=== PATIENT | female | born 1990 | race Caucasian/White ===

== ENCOUNTER 2018-02-11 16:59 | Observation (INO) ==
[2018-02-11 18:18] LABS: Bilirubin,Urine Negative (Negative); Blood,Urine Negative (Negative); Clarity,Urine Cloudy (Clear); Color,Urine Yellow (Yellow); Glucose,Urine (UA) Normal (Normal); Ketones,Urine Negative (Negative); Leukocyte Esterase,Urine Negative (Negative); Nitrite,Urine Negative (Negative); PH,Urine 6.5 pH Units (5.0-8.0); Protein,Urine 30 mg/dL (Neg-Trace); Specific Gravity,Urine 1.026 (1.010-1.025); Urobilinogen,Urine Normal (Normal)
[2018-02-11 18:19] LABS: Bacteria,Urine Many per hpf (None-Few); Hyaline Casts,Urine None Seen per lpf (None-Few); Squamous Epithelial Cell,Urine Many per lpf (None-Few); WBC,Urine 30-50 per hpf (0-3)
[2018-02-11 18:29] LABS: Alanine Aminotransferase 12 Units/L (7-52); Aspartate Amino Transferase 18 Units/L (13-39); BUN/Creatinine Ratio 13 (6-26); Blood Urea Nitrogen 10 mg/dL (6-20); Lactate Dehydrogenase 201 Units/L (140-271); Uric Acid 5.9 mg/dL (2.3-7.6); eGFR For Non-African Americans > 60 (> 60)
[2018-02-11 18:34] LABS: Calcium Oxalate Crystals,Urine Present
[2018-02-11 18:36] LABS: Basophils % 0.4 %; Eosinophils # 0.1 K/mcL (0.0-0.6); Eosinophils % 1.3 %; Hematocrit 35.2 % (35.3-44.9); Hemoglobin 11.5 g/dL (11.5-15.4); Immature Granulocytes % 0.5 % (0-4); Mean Corpuscular HGB Conc 32.7 g/dL (31.6-35.5); Mean Corpuscular Volume 79.6 fL (83.0-100.0); Mean Platelet Volume 11.4 fL (9.4-12.4); Monocytes # 0.7 K/mcL (0.0-1.3); Neutrophils # 5.5 K/mcL (1.6-8.9); Platelet Count 270 K/mcL (140-400); Red Blood Count 4.42 M/mcL (3.82-4.97); Red Cell Distribution Width 14.6 % (11.5-14.5); Segmented Neutrophils % 65.8 %
[2018-02-11 18:40] LABS: Amphetamine Screen,Urine Negative ng/mL (Cutoff=1000); Barbiturate Screen,Urine Negative ng/mL (Cutoff=200); Benzodiazepines Screen,Urine Negative ng/mL (Cutoff=200); Cannabinoid Screen,Urine Negative ng/mL (Cutoff = 50); Cocaine Screen,Urine Negative ng/mL (Cutoff= 300); Opiate Screen,Urine Negative ng/mL (Cutoff=300); Phencyclidine Screen,Urine Negative ng/mL (Cutoff=25)
[2018-02-11 18:43] LABS: Protein/Creatinine Ratio,Urine 0.18 mg/mg (0.00-0.20)
[2018-02-11 18:55] LABS: Hypochromasia Present (Not Present); Microcytosis Present (Not Present); Platelet Clumps Few (Not Present)
--- NOTE | 2018-02-13 13:55 | Event Note ---
Date of Encounter: 02/11/18 Time of Encounter: 18:55 Patient presented to labor and delivery complaining of headache and elevated blood pressures. Patient seen by nursing. [facility] labs were ordered. All results within normal limits. Patient feeling better. All labs called to me within normal limits and blood pressures normal. Patient desiring to go home. I gave verbal order for patient to go home. I did not see this patient personally
== END 2018-02-11 19:05 | disposition home or self-care (01) ==
LOC: 1NENULAB
PROVIDERS: ADMIT Obstetrics & Gynecology; ATTEND Obstetrics & Gynecology

== ENCOUNTER 2018-03-15 16:58 | Inpatient (IN) ==
[2018-03-15 14:54] LABS: Basophils % 0.2 %; Eosinophils % 0.4 %; Hematocrit 33.8 % (35.3-44.9); Hemoglobin 11.2 g/dL (11.5-15.4); Immature Granulocytes % 0.5 % (0-4); Lymphocytes # 1.5 K/mcL (0.6-4.6); Lymphocytes % 17.5 %; Mean Corpuscular HGB Conc 33.1 g/dL (31.6-35.5); Mean Corpuscular Hemoglobin 25.6 pg (28.0-33.3); Mean Corpuscular Volume 77.3 fL (83.0-100.0); Mean Platelet Volume 11.2 fL (9.4-12.4); Monocytes # 0.4 K/mcL (0.0-1.3); Monocytes % 5.2 %; Neutrophils # 6.4 K/mcL (1.6-8.9); Nucleated Red Blood Cells 0.2 /100 WBC (0); Platelet Count 276 K/mcL (140-400); Red Blood Count 4.37 M/mcL (3.82-4.97); Red Cell Distribution Width 15.7 % (11.5-14.5); Segmented Neutrophils % 76.2 %
[2018-03-15 15:19] LABS: Alanine Aminotransferase 10 Units/L (7-52); Aspartate Amino Transferase 14 Units/L (13-39); BUN/Creatinine Ratio 10 (6-26); Blood Urea Nitrogen 8 mg/dL (6-20); Lactate Dehydrogenase 155 Units/L (140-271); Uric Acid 7.3 mg/dL (2.3-7.6); eGFR For Non-African Americans > 60 (> 60)
[2018-03-15 15:30] LABS: Amphetamine Screen,Urine Negative ng/mL (Cutoff=1000); Barbiturate Screen,Urine Negative ng/mL (Cutoff=200); Benzodiazepines Screen,Urine Negative ng/mL (Cutoff=200); Cannabinoid Screen,Urine Negative ng/mL (Cutoff = 50); Cocaine Screen,Urine Negative ng/mL (Cutoff= 300); Opiate Screen,Urine Negative ng/mL (Cutoff=300); Phencyclidine Screen,Urine Negative ng/mL (Cutoff=25)
[2018-03-15 16:44] LABS: Protein/Creatinine Ratio,Urine 0.21 mg/mg (0.00-0.20)
[~2018-03-15 16:58] MED LIST: *HR* Nalbuphine 10 MG/ML AMPUL IVP PRN; Famotidine 20 MG/2 ML VIAL IVP PRN; Naloxone 0.4 MG/ML INJ IVP PRN; Ondansetron 4 MG/2 ML VIAL IVP PRN
[2018-03-15] MEDS ORDERED: Ringers Solution, Lactated 1,000 ML IVC SCH (17:00)
[2018-03-15] MEDS ORDERED: Acetaminophen 325 MG TABLET PO PRN (17:00)
--- NOTE | 2018-03-15 17:12 | OB/GYN History & Physical ---
Date of Encounter: 03/15/18 Time of Encounter: 17:04 Assessment and Plan (1) 40 weeks gestation of Current visit: Yes Status: Acute Patient admitted for delivery (2) Elevated blood pressure affecting in third trimester, antepartum Current visit: Yes Status: Acute Normal PIH labs] +proteinuria Discussed Patient assessment, labs and BP with Dr. Small who recommends delivery at this time. History of Present Illness Chief complaint: Elevated BP in HPI: Ms. Foreman is a 27 year old female at 40w0d presents to labor and delivery for PIH evaluation following and elevated BP in Dr. Santos's office today which was 130/98. Patient has proteinuria and edema bilateral extremities. Patient denies CARRILLO, Visual disturbances or epigastric pain. Patient denies any complications with current . Patient reports good movement. Denies contractions, VB or LOF. Blood type: O Positive Hep B: nonreactive Rubella: Immune GBS: Negative Past Med Surg Social Fam HX - Past Medical History Source: patient Medical history: GERD Additional medical history: Scoliosis Psychiatric history: anxiety - Past Surgical History Surgical History: other Additional surgical history: [place] teeth - Social History Smoking Status: Former smoker Smokeless Tobacco Status: No Alcohol use: none Drug use: none - Family History Mother Living Status: Still Living Hx Family Cardiac Disorders: Yes (HTN, Strokes) Hx Family Respiratory Disorders: No Hx Family Cancer: No Hx Family GI Disorders: No Hx Family Genitourinary Disorders: No Hx Family Endocrine Disorder: Yes (DM) Hx Family Musculoskeletal Disorders: No Hx Family Neuromuscular Disorders: No Hx Family Neurologic Disorders: No Hx Family HEENT Disorders: No Hx Family Autoimmune Disorders: No Hx Family Reproductive Disorders: No Hx Family Psychosocial Disorders: No Hx Family Medical Disorders: No Obstetrical History - Pregnancies : 1 Para: 0 Term: 0 : 0 Ab's: 0 Livin Medications and Allergies Vit/Iron Fumarate/FA [ Tablet] 1 tab PO DAILY 02/11/18 [History ] 3 Allergy/AdvReac Type Severity Reaction Status Date / Time No Known Allergies Allergy Verified 02/11/18 17:15 Review of System OB - Constitutional Constitutional ROS IM: no chills, no fever(s), no headache(s) - Cardiovascular Cardiovascular: pedal edema, no chest pain, no lightheadedness, no palpitations , no syncope - Respiratory Respiratory: no cough - Gastrointestinal Gastrointestinal: no abdominal pain, no constipation, no diarrhea, no heartburn , no nausea, no vomiting - Genitourinary Genitourinary: no abnormal vaginal bleeding, no dysuria, no flank pain, no urinary frequency, no vaginal discharge, no vaginal odor Exam - Constitutional Constitutional: well developed, well nourished, no acute distress, obese - HEENT HEENT: Normocephaly, Mucus Membranes Moist - Neck Neck exam: full ROM, supple - Lungs Respiratory exam: CTAB - Cardiovascular Cardiovascular exam: RRR, +S1, +S2 - Abdomen Abdomen: Present: bowel sounds normal, gravid, non tender - Extremities Extremities exam: full ROM, pedal edema (2+ bilateral feet) Deep Tendon Reflex Grade: 2+ Normal (no clonus) - Uterus Uterus exam: Present: normal size, normal contour - Comments Comments: FHR 135 bpm moderate variability +15x15 accels no decels noted. Cat. 1 tracing. Occasional contraction noted. Results Result Diagrams: 03/15/18 14:30 03/15/18 14:30 Abnormal lab results Hgb 11.2 g/dL (11.5-15.4) L 03/15/18 14:30 Hct 33.8 % (35.3-44.9) L 03/15/18 14:30 MCV 77.3 fL (83.0-100.0) L 03/15/18 14:30 MCH 25.6 pg (28.0-33.3) L 03/15/18 14:30 RDW 15.7 % (11.5-14.5) H 03/15/18 14:30 Nucleated RBCs/100 WBC 0.2 /100 WBC (0) H 03/15/18 14:30 Protein/Creatinin Ratio 0.21 mg/mg (0.00-0.20) H 03/15/18 14:30 Urine Total Protein 83 mg/dL (1-14) H 03/15/18 14:30 All other labs normal. - VTE Reasons for not Prescribing Prophylaxis: Treatment not Indicated - Low risk for VTE
[2018-03-15] MEDS ORDERED: EPHEDrine 50 MG/ML VIAL IVP PRN (20:01)
--- NOTE | 2018-03-15 20:05 | Anesthesia Evaluation PreOp ---
Date of Encounter: 03/15/18 Time of Encounter: 19:52 - Past History Planned Operation: vaginal del, 40wk PIH induction G1 Cardiac History: HTN (bilateral edema, protein in urine.) Pulmonary History: Denies Any Significant HX FIRE PROTECTION SPECIALIST History: Other (scoliosis - chronic back pain no radiculopathy reported.) Other Medical History: GERD, Other (anxiety, [place] - bmi = 39) Anesthesia History: No Prior Anesthetic Complications, Past Anesthesia Alcohol Use: none Drug use: none Medications and Allergies Vit/Iron Fumarate/FA [ Tablet] 1 tab PO DAILY 02/11/18 [History ] 3 Allergy/AdvReac Type Severity Reaction Status Date / Time No Known Allergies Allergy Verified 02/11/18 17:15 Anesthesia Results - Labs 03/15/18 14:30 03/15/18 14:30 Anesthesia Exam - HEENT Pupil (Motor): Pupils equal Mallampati: II Teeth: Normal (tongue ring...told it must come out prior to epidural.) Oral Opening: Greater than 3 - FIRE PROTECTION SPECIALIST LOC: Oriented FIRE PROTECTION SPECIALIST Motor: Normal RUE, Normal LUE, Normal RLE, Normal LLE, Normal Face FIRE PROTECTION SPECIALIST Sensory: Normal: RUE, LUE, RLE, LLE, Face - Cardiac Rhythm: Regular Murmur: None - Pulmonary Breath Sounds: bilateral Clear Respiratory Effort: Symmetrical Anesthesia Assess/Plan ASA Score: 3 Modified George Scale for Level of Consciousness: Cooperative, oriented, and tranquil Anesthetic Plan: General, Regional Monitoring Plan: Standard Monitors Recovery Plan: PACU
[2018-03-15] MEDS ORDERED: Epidural Premix (fent/bupiv) 110 ML EP SCH (20:15)
[2018-03-16] MEDS ORDERED: Epidural Premix (fent/bupiv) 110 ML EP ONE (05:48)
[2018-03-16] MEDS ORDERED: Lidocaine -MPF 2% 5 ML VIAL ONE (05:50)
--- NOTE | 2018-03-16 06:25 | Anesthesia Procedures ---
Date of Encounter: 03/16/18 Time of Encounter: 06:04 Procedures: Anesthesia - Epidural/Spinal Patient ID/Chart reviewed: Yes Patient examined: Yes OB Eval: Gestational age: term OB Eval: : 1 OB Eval: Contractions: Non-stressed pattern Consent Obtained: Yes Supplemental Oxygen: None/Room Air Site Prep: Aseptic Technique, Sterile prep and drape, 0.5% Chlorhexidine/Alcohol Patient position: upright Local Anesthetic: Lidocaine 1% Amount of Local Anesthetic used: 2 Touhy Needle Gauge: 18 Touhy Needle Depth (cm): 8 Catheter Depth at Skin (cm): 13 Test Dose (1.5% Lido + Epi): Volume given (mls): 3 Test Dose Result: Negative Loading Dose: Other: 10ml from solution Loading Dose Administered: Thru Catheter Infusion Med: 0.125% Bupivacaine w/ 2 mcg/ml Fentanyl Infusion Rate (mls/hr): [address]: Tegaderm, Tape Interspace Used: L3-L4 Loss of Resistance (VITO): Yes (saline) Blood: No CSF: No Paresthesia: No Procedure: vss though out, fhr stable per RN's
[2018-03-16] MEDS ORDERED: Oxytocin 20 units/ LR 1000 mL 20 UNIT/1,000 ML BAG IVC SCH ×2 (07:00→15:47)
--- NOTE | 2018-03-16 09:13 | OB Labor Progress Note ---
Date of Encounter: 03/16/18 Time of Encounter: 09:09 Labor Progress Note - Subjective Subjective: Pt reports pain 6/10 with contractions that just recently started to return since epidural was placed. - Heart Tones Heart Tones: Category I - Arbuckle Arbuckle: irregular - Plan Plan: Plan for pitocin augmentation. Epidural bolus as needed for pain control. AROM when contractions are regular. Anticipate .
[2018-03-16] MEDS ORDERED: *HR* FentaNYL (PF) 100 MCG/2 ML VIAL ONE (09:39)
--- NOTE | 2018-03-16 09:45 | Anesthesia Progress Note ---
Date of Encounter: 03/16/18 Time of Encounter: 09:44 Anesthesia Note - Note Note: 03/16/18 09:44 bolus fentanyl 100 mcg, ropivicaine 0.2% 5cc for break through pain
--- NOTE | 2018-03-16 15:12 | OB/GYN Procedure Note ---
Delivery - Delivery Date: 03/16/18 Provider: Manjeet Still Intrapartum events: none Delivery induction: cervidil Delivery augmentation: pitocin Delivery monitor: internal FHT, internal uterine Anesthesia: epidural Quantitated Blood Loss: 100 - (s) Infant A Delivery Date: 03/16/18 Infant Delivery Time: 14:12 Presentation: vertex Position: OA Route of delivery: vacuum extraction Gender: Female Viability: Viable Weight Gram: 3.07 kg at 1 minute: 9 at 5 mins: 9 Shoulder Dystocia: not encountered Specimens collected: cord blood Placenta: spontaneous Cord: 3 umbilical vessels, nuchal cut - Repair Laceration Description: Perineal - 2nd Degree - Complications Delivery complications: none - Disposition Mom disposition: stable in LDR disposition: stable in LDR - Comments Comments: Patient's 27-year-old female 40 weeks 1 day gestation induced for preeclampsia uterus complete dilatation was asked to come see patient for maternal exhaustion +2 station. Verbal consent was obtained for vacuum extraction. Bladder was drained of clear urine. Kiwi vacuum was applied to the head and vacuum was applied to the pressure 550 mmHg with good movement of the . The Tissue was attempted 2 more times with immediate pop off. Infant was delivered from direct OA presentation was found was 6 lbs. 12 oz. Apgars of 9 at 1 minute and 9 at 5 minutes. We have spontaneously deliver with three- vessel cord. It was a second-degree laceration. With 0 Vicryl under general anesthesia. Estimated blood loss was 100 mL. Mother and recovered in the labor and delivery room
[2018-03-16] MEDS ORDERED: Acetaminophen 325 MG TABLET PO PRN (15:47)
[2018-03-16] MEDS ORDERED: Measles/Mumps/Rubella Vacc 0.5 ML VIAL SQ PRN (15:47)
[2018-03-16] MEDS ORDERED: Rho Immune Globulin 1,500 UNIT SYRINGE IM PRN (15:47)
[2018-03-17 06:44] LABS: Basophils % 0.2 %; Eosinophils % 0.2 %; Hematocrit 30.4 % (35.3-44.9); Hemoglobin 9.8 g/dL (11.5-15.4); Immature Granulocytes % 0.4 % (0-4); Lymphocytes # 2.4 K/mcL (0.6-4.6); Lymphocytes % 16.7 %; Mean Corpuscular HGB Conc 32.2 g/dL (31.6-35.5); Mean Corpuscular Hemoglobin 24.7 pg (28.0-33.3); Mean Corpuscular Volume 76.8 fL (83.0-100.0); Mean Platelet Volume 10.9 fL (9.4-12.4); Monocytes # 0.9 K/mcL (0.0-1.3); Neutrophils # 10.9 K/mcL (1.6-8.9); Platelet Count 229 K/mcL (140-400); Red Blood Count 3.96 M/mcL (3.82-4.97); Segmented Neutrophils % 76.5 %
[2018-03-17] MEDS ORDERED: Benzocaine/Menthol 56 GM AEROSOL SPRAY TP PRN (08:08)
[2018-03-17 08:13] VITALS: BP 129/85
[2018-03-17] MEDS ORDERED: Prenatal Vit/FA 1 EACH TABLET PO SCH (09:00)
--- NOTE | 2018-03-17 11:16 | Discharge Summary ---
Date of Encounter: 03/17/18 Time of Encounter: 11:14 - Discharge Diagnosis (1) Status post vaginal delivery Priority: Primary Status: Acute Comments: Meeting PP milestones. BFing and doing hand expression. Pt has a pump for home. Discharge home today. - Discharge Medications Prescriptions: Ibuprofen [Motrin] 600 mg PO Q6HR PRN #30 tab PRN Reason: Pain Of Port Access Docusate [Colace] 100 mg PO BID #60 capsule Home Medications: Vit/Iron Fumarate/FA [ Tablet] 1 tab PO DAILY 02/11/18 [History ] Acetaminophen [Tylenol] 650 mg PO Q6HR PRN tablet 03/17/18 [Rx] Benzocaine/Menthol [place] [Dermoplast [place]] 1 appl TP QID PRN aerosol 03/17/18 [Rx] Docusate [Colace] 100 mg PO BID #60 capsule 03/17/18 [Rx] Ibuprofen [Motrin] 600 mg PO Q6HR PRN #30 tab 03/17/18 [Rx] Allergies/Adverse Reactions: 3 Allergy/AdvReac Type Severity Reaction Status Date / Time No Known Allergies Allergy Verified 02/11/18 17:15 Data Procedures and tests throughout hospitalization: Laboratory Tests 03/15/18 03/15/18 03/15/18 14:30 14:30 14:30 WBC 8.3 RBC 4.37 Hgb 11.2 L Hct 33.8 L MCV 77.3 L MCH 25.6 L MCHC 33.1 RDW 15.7 H Plt Count 276 MPV 11.2 Immature Gran % 0.5 Seg Neutrophils % 76.2 Lymphocytes % 17.5 Monocytes % 5.2 Eosinophils % 0.4 Basophils % 0.2 Neutrophils # 6.4 Lymphocytes # 1.5 Monocytes # 0.4 Eosinophils # 0.0 Basophils # 0.0 Nucleated RBCs/100 WBC 0.2 H BUN Creatinine Est GFR ( Amer) Est GFR (Non-Af Amer) BUN/Creatinine Ratio Uric Acid AST ALT Lactate Dehydrogenase Urine Creatinine 388 Protein/Creatinin Ratio 0.21 H Urine Total Protein 83 H Urine Opiates Screen Negative Ur Barbiturates Screen Negative Ur Phencyclidine Scrn Negative Ur Amphetamines Screen Negative U Benzodiazepines Scrn Negative Urine Cocaine Screen Negative U Marijuana (THC) Screen Negative Ur Drug Screen Interp See Below 03/15/18 03/17/18 14:30 06:29 WBC 14.3 H D RBC 3.96 Hgb 9.8 L Hct 30.4 L MCV 76.8 L MCH 24.7 L MCHC 32.2 RDW 16.0 H Plt Count 229 MPV 10.9 Immature Gran % 0.4 Seg Neutrophils % 76.5 Lymphocytes % 16.7 Monocytes % 6.0 Eosinophils % 0.2 Basophils % 0.2 Neutrophils # 10.9 H Lymphocytes # 2.4 Monocytes # 0.9 Eosinophils # 0.0 Basophils # 0.0 Nucleated RBCs/100 WBC BUN 8 Creatinine 0.84 Est GFR ( Amer) > 60 Est GFR (Non-Af Amer) > 60 BUN/Creatinine Ratio 10 Uric Acid 7.3 AST 14 ALT 10 Lactate Dehydrogenase 155 Urine Creatinine Protein/Creatinin Ratio Urine Total Protein Urine Opiates Screen Ur Barbiturates Screen Ur Phencyclidine Scrn Ur Amphetamines Screen U Benzodiazepines Scrn Urine Cocaine Screen U Marijuana (THC) Screen Ur Drug Screen Interp Labs on day of discharge: Labs from last 24 hours 03/17/18 06:29 WBC 14.3 H D RBC 3.96 Hgb 9.8 L Hct 30.4 L MCV 76.8 L MCH 24.7 L MCHC 32.2 RDW 16.0 H Plt Count 229 MPV 10.9 Immature Gran % 0.4 Seg Neutrophils % 76.5 Lymphocytes % 16.7 Monocytes % 6.0 Eosinophils % 0.2 Basophils % 0.2 Neutrophils # 10.9 H Lymphocytes # 2.4 Monocytes # 0.9 Eosinophils # 0.0 Basophils # 0.0 Date of admission: 03/15/18 16:58 Primary care physician: Donavon Perez MD Consults: 03/16/18 15:47 Consult to Solar Resource Assessor [CONS] Routine Comment: Vaginal delivery, consult needed Discharging clinician: Anayeli Zuniga Anticipated date of discharge: 03/17/18 - Patient Status Disposition: Home, Self-Care Condition: Good Functional capacity at discharge: independent ambulation Overall status at discharge: patient is progressing back to baseline - Discharge Instructions Follow Up With: Donavon Perez MD [Primary Care Provider] - Dre Santos MD [Partnered Physician] - - Diet and Activity Activity: increase activity as tolerated Diet: advance to your usual diet Hospital Course Reason for admission: induction of labor Delivery: , vacuum extraction Episiotomy: none Laceration: 2nd degree Other procedures: none complications: none Discharge diagnosis: IUP at term delivered [place] baby: female Hospital course: - Delivery Date: 03/16/18 Provider: Manjeet Still Intrapartum events: none Delivery induction: cervidil Delivery augmentation: pitocin Delivery monitor: internal FHT, internal uterine Anesthesia: epidural Quantitated Blood Loss: 100 - (s) Infant A Infant Delivery Date: 03/16/18 Delivery Time: 14:12 Presentation: vertex Position: OA Route of delivery: vacuum extraction Gender: Female Viability: Viable Weight Gram: 3.07 kg at 1 minute: 9 at 5 mins: 9 Shoulder Dystocia: not encountered Specimens collected: cord blood Placenta: spontaneous Cord: 3 umbilical vessels, nuchal cut - Repair Laceration Description: Perineal - 2nd Degree - Complications Delivery complications: none - Disposition Mom disposition: stable in LDR disposition: stable in LDR - Comments Comments: Patient's 27-year-old female 40 weeks 1 day gestation induced for preeclampsia uterus complete dilatation was asked to come see patient for maternal exhaustion +2 station. Verbal consent was obtained for vacuum extraction. Bladder was drained of clear urine. Kiwi vacuum was applied to the head and vacuum was applied to the pressure 550 mmHg with good movement of the infant. The Tissue was attempted 2 more times with immediate pop off. Infant was delivered from direct OA presentation was found was 6 lbs. 12 oz. Apgars of 9 at 1 minute and 9 at 5 minutes. We have spontaneously deliver with three- vessel cord. It was a second-degree laceration. With 0 Vicryl under general anesthesia. Estimated blood loss was 100 mL. Mother and infant recovered in the labor and delivery room Time Attestation: Total time spent providing and/or coordinating discharge services: Exam - Constitutional Vitals: Temp Pulse Resp BP Pulse Ox 98.1 F 80 16 129/85 98 03/17/18 07:30 03/17/18 07:30 03/17/18 07:30 03/17/18 07:30 03/17/18 02:52 General appearance IM: A&O X 3, pleasant, no acute distress - Respiratory Respiratory exam: Present: CTAB - Cardiovascular Cardiovascular exam IM: Present: RRR, +S1, +S2 - Uterine Tone: Firm Uterus Position: 1 Finger Below Umbilicus - Extremities Exam Extremities exam IM: Present: normal inspection - Neurological Exam Neurological exam: oriented X3
== END 2018-03-17 18:55 | disposition home or self-care (01) | DRG 775 ==
LOC: 1NENULAB → 1NENUOBS 03-16 15:46
PROVIDERS: ADMIT Advanced Practice Midwife; ATTEND Advanced Practice Midwife